=== PATIENT | female | born 1950 | race Caucasian/White ===

== ENCOUNTER 2016-11-10 06:41 | Day surgery (SDC) | payer MEDICARE, MEDICAID ==
[~2016-11-10] VITALS: Ht 170.3 cm; Wt 105.0 kg
[2016-11-10] VITALS (14 sets, daily range): BP systolic 122–153; BP diastolic 64–81; PULSE 53–67; TEMP 97.4–97.9
[~2016-11-10 06:41] MED LIST: ACIDOPHILIS PO; ASPIRIN E.C. 8181 MG PO; DITROPAN 5MG TAB5 MG PO; FISH OIL 500 M1 EAC1 PO; LEVAQUIN 5500 MG/TA1 PO; LOPRESSOR 550 MG/TAB PO; LORTAB 5/500 501 TAB PO; METOPROLOL25 MG PO; MULTIPLE VITAMI1 CAP PO; MULTIVITAMIN FO1 CAP PO; PRINIVIL10 MG PO; SYNTHROID0.025 MG PO; SYNTHROID0.137 MG PO; ULTRAM 50MG TAB50 MG PO; VITAMIN D31000 IU PO; VITAMIN D50000 IU PO; ZYLOPRIM 100MG100 MG PO; ZYRTEC 10MG10 MG PO
[2016-11-10] MEDS ORDERED: LEVOXYL0.125 MG PO (07:31)
[2016-11-10 07:39] LABS: HEMATOCRIT 40.4 % (37.0-47.0); HEMOGLOBIN 13.4 g/dl (12.5-16.0); MEAN CELL VOLUME 90 fl (80.0-100.0); MEAN CORPUSCULAR HEMOGLOBIN 30 pg (27.0-31.0); MEAN CORPUSCULAR HGB CONC 33 g/dl (33.0-37.0); PLATELET COUNT 146 K/mm3 (130-400); REDCELL DISTRIBUTION WIDTH-CV 15.5 % (11.5-14.5); WHITE BLOOD COUNT 4.4 K/mm3 (4.8-10.8)
[2016-11-10 07:49] LABS: CALCIUM 9.5 mg/dL (8.4-10.2); CREATININE, serum 1.65 mg/dL (0.52-1.25); POTASSIUM 4.3 mmol/L (3.4-5.0)
[2016-11-10 07:51] LABS: INR 0.9 (0.8-3.0); PROTHROMBIN TIME 10.2 SECONDS (9.7-12.8)
[2016-11-10] MEDS ORDERED: TRAVATAN Z 2.52.5 ML OU (08:53)
[2016-11-10] MEDS ORDERED: VITAMIN C500 MG PO (08:54)
[2016-11-10] MEDS ORDERED: NITROSTAT0.4 MG/TAB SL (08:55)
[2016-11-10] MEDS ORDERED: COREG12.5 MG PO (10:24)
[2016-11-10] MEDS ORDERED: PLAVIX 75MG TAB75 MG PO (10:24)
== END 2016-11-10 17:31 | disposition home or self-care (01) ==
LOC: COL.CAR 06:41
PROVIDERS: Internal Medicine Cardiovascular Disease
DX: I42.9 Cardiomyopathy, unspecified (principal); I20.9 Angina pectoris, unspecified; I10 Essential (primary) hypertension; E03.9 Hypothyroidism, unspecified; Z82.49 Family history of ischemic heart disease and other diseases of the circulatory system
CPT/HCPCS: A9270-GY; C1760; C1769; C1894; J2250; J3010; Q9967

== ENCOUNTER 2019-04-16 12:00 | Inpatient (IN) | payer MEDICARE, MEDICAID ==
[~2019-04-16] VITALS: Ht 170.2 cm; Wt 99.1 kg
[2019-04-16] VITALS (10 sets, daily range): BP systolic 91–144; BP diastolic 48–99; PULSE 82–102; TEMP 97.9–98.7
[~2019-04-16 12:00] MED LIST changes: -ASPIRIN E.C. 8181 MG PO; +COREG12.5 MG PO; +LEVOXYL0.15 MG PO; +NITROSTAT0.4 MG/TAB SL; +TRAVATAN Z 2.52.5 ML OU; +VITAMIN C500 MG PO
--- NOTE | 2019-04-16 12:00 | NUR ---
Admitted from [facility] with GI bleed. States vomited dark blood and had dark stools. VSS. No complaints at this time.
--- NOTE | 2019-04-16 13:00 | NUR ---
Dr. Correa saw patient. Plan is for EGD today.
[2019-04-16 14:31] LABS: HEMOGLOBIN 8.3 g/dl (12.5-16.0)
[2019-04-16] MEDS ORDERED: NORVASC2.5 MG PO (14:38)
[2019-04-16] MEDS ORDERED: ZADITOR 5 ML5 ML OP (14:39)
--- NOTE | 2019-04-16 15:10 | NUR ---
Medicated with Morphine for c/o left abdominal pain with relief.
--- NOTE | 2019-04-16 17:10 | NUR ---
To procedure per bed with OR staff.
--- NOTE | 2019-04-16 18:20 | NUR ---
Returned to room from PACU. Nauseated and vomiting. Has been medicated. VSS.
--- NOTE | 2019-04-16 19:10 | NUR ---
Medicated with Dilaudid for c/o abdominal pain.
[2019-04-16 21:02] LABS: HEMATOCRIT 23.8 % (37.0-47.0); HEMOGLOBIN 7.6 g/dl (12.5-16.0)
--- NOTE | 2019-04-16 22:07 | NUR ---
Pt doing better. Did have an episde of emesis during shift change and was c/o pain. Pt received prn pain medication and states she feels a lot better. Alert and oriented with VSS. NS running at 75 to right AC. Rates pain a 1 now. Resting in bed. Hgb dropped from 8.3 to 7.6. Denies needs at this time. Call light within reach, will continue to monitor
[2019-04-17] VITALS (13 sets, daily range): BP systolic 96–124; BP diastolic 42–64; PULSE 80–105; TEMP 97.5–99
--- NOTE | 2019-04-17 | NUR ---
Pt did cough up scant amount of mucous and dried blood, dark brown in color.
--- NOTE | 2019-04-17 00:15 | NUR ---
Pt c/o generalized abdominal pain, describes as "achy pain," RR at 18. Pulse 100 and BP 100/56. Is pale in color but was pale when I arrived on shift. Rates pain about a 4 after receiving dilaudid. Resting in bed. Denies chest pain or SOB. CAll light within reach, will continue to monitor.
[2019-04-17 01:22] LABS: HEMATOCRIT 22.2 % (37.0-47.0)
--- NOTE | 2019-04-17 02:37 | NUR ---
Pt has been having low bp readings (see intervention). Per Maggie, 1 unit of PRBC. This is currently infusing, patient tolerating well. Still having low BPs. Denies SOB or chest pain. States her abd pain in better. Pt is still pale looking. Will continue to monitor vitals. Call light within reach, will continue to monitor
--- NOTE | 2019-04-17 02:48 | NUR ---
Pt had large loose stool, dark red in color
--- NOTE | 2019-04-17 03:09 | NUR ---
Pt tolerating transfusion well, pressures are increasing. Last BP of 112/50. Denies chest pain or SOB. Call light within reach, will continue to monitor
--- NOTE | 2019-04-17 05:03 | NUR ---
Pt noted to have clots of tissue in baker.
--- NOTE | 2019-04-17 06:06 | NUR ---
Pt seems to be doing better overall. Still pale with soft pressures but states she feels ok. denies pain at this time. had to call lab to draw stat h&h. will await results. call light within reach, will continue to monitor
[2019-04-17 07:26] LABS: ALBUMIN 2.8 gm/dL (3.5-5.0); BASO % 0.2 % (0.0-2.0); BILIRUBIN,TOTAL 0.4 mg/dL (0.0-1.0); CREATININE, serum 2.09 (0.52-1.25); EOS % 0.2 % (0-4.0); GRAN # 9.4 (1.4-6.5); GRAN % 76.5 % (42.2-75.2); LYMPH # 1.9 (1.2-3.4); LYMPH % 15.2 % (20.0-51.0); MEAN CELL VOLUME 91 fl (80.0-100.0); MEAN CORPUSCULAR HGB CONC 32 g/dl (33.0-37.0); MEAN PLATELET VOLUME 10.8 fl (7.4-10.4); MONO # 0.9 (0.1-0.6); MONO % 7.3 % (1.7-9.3); PLATELET COUNT 160 K/mm3 (130-400); POTASSIUM 4.3 mmol/L (3.4-5.0); RED BLOOD COUNT 2.69 M/mm3 (4.10-5.30); REDCELL DISTRIBUTION WIDTH-CV 15.8 % (11.5-14.5); TOTAL PROTEIN 4.9 gm/dL (6.4-8.2)
[2019-04-17 07:33] LABS: HEMATOCRIT 24.6 % (37.0-47.0); HEMOGLOBIN 7.8 g/dl (12.5-16.0); MEAN CORPUSCULAR HEMOGLOBIN 29 pg (27.0-31.0)
--- NOTE | 2019-04-17 08:00 | NUR ---
PATIENT IS RESTING IN BED THIS MORNING. PATIENT IS A&OX4. VSS. TELE IN PLACE. BOWEL SOUNDS ACTIVE ALL FOUR QUADRANTS. PATIENT TOLERATING CLEAR LIQUIDS WITHOUT ANY COMPLAINTS OF N/V OR PAIN. PATIENT COLORING IS PALE. NON-PITTING BLE EDEMA. LEFT AND RIGHT AC TO INT. INDWELLING RUDOLPH CATHETER DRAINING GREEN-TINGED, FLESHY URINE TO RUDOLPH BAG. PATIENT DENIES ANY PAIN THIS MORNING. CALL LIGHT WITHIN REACH. NO OTHER NEEDS AT THIS TIME.
--- NOTE | 2019-04-17 10:15 | NUR ---
PATIENT HAD A SMALL SOFT DARK STOOL WITH SMALL AMOUNTS OF BRIGHT RED BLOOD PRESENT IN TOILET.
--- NOTE | 2019-04-17 13:28 | NUR ---
SW met with the patient to discuss a discharge plan. The patient lives in [place] with her mother and brother. The patient does not use DME and reports independence with ADLs. The patient's PCP is JOHN Rivera and patient receives medications from [facility] in [place] on [address] with no difficulties. The patient does not have advanced directives in the EMR but was interested in a DPOA-HC form. Form provided. technical services specialist will continue to follow to ensure a safe discharge.
[2019-04-17] MEDS ORDERED: TRAVATAN Z 5 ML5 ML OU (13:40)
[2019-04-17 14:56] LABS: HEMATOCRIT 22.4 % (37.0-47.0); HEMOGLOBIN 7.3 g/dl (12.5-16.0)
--- NOTE | 2019-04-17 19:18 | NUR ---
REPORT GIVEN TO TJ NASH.
--- NOTE | 2019-04-17 20:25 | NUR ---
Resting in bed. Assessment complete. Lungs clear. Heart sound normal. Bowels active x4. Pulses present throughout. Bilateral lower leg edema +1. INT right and left AC flushes without complications. Matt in place to dependent drainage without kinks or loops. Urine greenish/brown from dye received in earlier procedure. Denies pain. Denies needs at this time. Call light in reach.
--- NOTE | 2019-04-17 20:34 | NUR ---
Up to restroom for bowel movement. Patient had large dark blood stool at this time. Returned to bed. Denies other needs. call light in reach.
[2019-04-18] VITALS (12 sets, daily range): BP systolic 83–115; BP diastolic 40–66; PULSE 57–81; TEMP 98–99
--- NOTE | 2019-04-18 06:11 | NUR ---
Patient had x2 episodes of black stool throughout the night. Otherwise uneventful night. Resting in bed this AM. Denies needs. Call light in reach.
--- NOTE | 2019-04-18 07:21 | NUR ---
Report given to TJ Toledo
--- NOTE | 2019-04-18 10:30 | NUR ---
Patient alert and oriented, answers questions appropriately. See assessment. Abdomen soft, non tender, non distended. +Flatus. +Bowel movement. Bowel sounds hyperactive x4 quads. C/o general malaise. No other c/o at this time.
[2019-04-18 10:41] LABS: BASO % 0.4 % (0.0-2.0); EOS # 0.1 (0.0-0.7); EOS % 1.3 % (0-4.0); GRAN # 5.5 (1.4-6.5); GRAN % 79.6 % (42.2-75.2); LYMPH # 0.8 (1.2-3.4); LYMPH % 11.6 % (20.0-51.0); MEAN CELL VOLUME 91 fl (80.0-100.0); MEAN CORPUSCULAR HGB CONC 32 g/dl (33.0-37.0); MEAN PLATELET VOLUME 10.5 fl (7.4-10.4); MONO # 0.5 (0.1-0.6); MONO % 6.5 % (1.7-9.3); PLATELET COUNT 109 K/mm3 (130-400); RED BLOOD COUNT 2.18 M/mm3 (4.10-5.30); REDCELL DISTRIBUTION WIDTH-CV 15.9 % (11.5-14.5)
[2019-04-18 10:45] LABS: HEMATOCRIT 19.9 % (37.0-47.0); HEMOGLOBIN 6.3 g/dl (12.5-16.0); MEAN CORPUSCULAR HEMOGLOBIN 29 pg (27.0-31.0)
[2019-04-18 10:48] LABS: CALCIUM 8.5 mg/dL (8.4-10.2); CREATININE, serum 2.29 (0.52-1.25)
--- NOTE | 2019-04-18 19:06 | NUR ---
Order for 1UPRBC entered and acknowledged at approx 1045. Lab called several times throughout shift to inquire is blood ready, was told by lab that "they are working on it". Lab called at approx 1715, lab personnel states that there is no order to transfuse. Order again noted in blood bank orders. Lab request new order to transfuse be put in. New order entered, lab calls back fifteen minutes later and states there is no order in yet, however, two orders are viewed in patients orders. Mechanical Design Engineer notified, she will discuss with lab. Initial HGB when original order received was 6.3. Patient was updated throughout the day of transfusion status.
--- NOTE | 2019-04-18 19:30 | NUR ---
Report received. Assumed care for night shift supervisor. A&Ox3. Assessment complete.. Sitting up in chair. Tolerating PO. Denies pain/nausea/shortness of breath. States she feels weak but no other C/O. Matt cath with light green urine. INT to left AC flushes without difficulty. Unit of PRBC initiated per dr order. Denies needs. Will continue to monitor.
--- NOTE | 2019-04-18 22:15 | NUR ---
Blood transfusion completed. Tolearated well.
[2019-04-18 23:45] LABS: HEMATOCRIT 24.6 % (37.0-47.0)
[2019-04-19 00:38] VITALS: BP 120/47; PULSE 71; TEMP 98.6
--- NOTE | 2019-04-19 04:00 | NUR ---
Rested well later this shift. INT to left and right AC both infiltrated. Attempt made x2 to restart-change house attendant notified and attempted x6. Access gained to left foot x1 attempt by this nurse-20guage.
[2019-04-19 05:50] VITALS: BP 122/48; PULSE 70; TEMP 98.2
[2019-04-19 08:08] LABS: BASO % 0.9 % (0.0-2.0); EOS # 0.1 (0.0-0.7); EOS % 2.8 % (0-4.0); GRAN # 2.9 (1.4-6.5); LYMPH # 0.8 (1.2-3.4); LYMPH % 19.1 % (20.0-51.0); MEAN CELL VOLUME 93 fl (80.0-100.0); MEAN CORPUSCULAR HGB CONC 32 g/dl (33.0-37.0); MEAN PLATELET VOLUME 11.1 fl (7.4-10.4); MONO # 0.3 (0.1-0.6); MONO % 7.3 % (1.7-9.3); PLATELET COUNT 105 K/mm3 (130-400); RED BLOOD COUNT 2.55 M/mm3 (4.10-5.30); REDCELL DISTRIBUTION WIDTH-CV 15.7 % (11.5-14.5)
[2019-04-19 08:16] LABS: HEMATOCRIT 23.6 % (37.0-47.0); HEMOGLOBIN 7.5 g/dl (12.5-16.0); MEAN CORPUSCULAR HEMOGLOBIN 29 pg (27.0-31.0)
[2019-04-19 08:27] LABS: CALCIUM 8.8 mg/dL (8.4-10.2); CREATININE, serum 2.28 (0.52-1.25); POTASSIUM 3.7 mmol/L (3.4-5.0)
[2019-04-19 09:46] VITALS: BP 120/52; PULSE 66; TEMP 97.9
--- NOTE | 2019-04-19 10:30 | NUR ---
Patient alert and oriented, answers questions appropriately. See assessment. Abdomen soft, non tender, non distended. Bowel sounds active x4 quads. +Flatus. Reports significant decrease in bloody stools. Matt catheter patent and draining seafoam green urine. Urine is odorous with debris noted. Order for UA received. Patient has no c/o flank pain or discomfort. No other c/o at this time.
[2019-04-19 11:12] LABS: MUCOUS Present /lpf; PH 8 (5-8); URINE APPEARANCE Turbid; URINE BACTERIA Moderate /hpf; URINE BILIRUBIN Negative (NEGATIVE); URINE BLOOD 2+ (NEGATIVE); URINE COLOR Amber; URINE GLUCOSE Negative (NEGATIVE); URINE KETONE Negative (NEGATIVE); URINE LEUKOCYTE ESTERASE 3+ (NEGATIVE); URINE NITRATE Negative (NEGATIVE); URINE PROTEIN(semi-quant) 2+ (NEGATIVE); URINE UROBILINOGEN Negative (NEGATIVE)
[2019-04-19 11:27] LABS: COLLECTION METHOD CLEAN CATCH
[2019-04-19 13:18] VITALS: BP 123/56; PULSE 70; TEMP 98
[2019-04-19 17:10] LABS: HEMATOCRIT 24.5 % (37.0-47.0); HEMOGLOBIN 7.9 g/dl (12.5-16.0)
[2019-04-19 18:19] VITALS: BP 110/44; PULSE 71; TEMP 98.7
--- NOTE | 2019-04-19 20:00 | NUR ---
Report received. 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 Assessment complete. A&Ox3. VS stable. Denies pain/nausea/shortness of breath. States she is less lightheaded this evening. Has had one black stool this shift. States she is very tired and wanting to lay down for bed soon. IV to left foot flushes without difficulty. Noted to have multiple large bruised areas on bilat upper extremitites and thighs. Amtt cath with blue/green cloudy urine. PCT doing bed bath/shana care. Tolerating diet. Denies needs. Encouraged to call for questions or concerns. Verbalizes understanding. Will monitor.
[2019-04-20 00:34] VITALS: BP 128/54; PULSE 72; TEMP 97.8
[2019-04-20 03:51] VITALS: BP 136/64; PULSE 72; TEMP 97.7
[2019-04-20 08:37] LABS: BASO % 0.8 % (0.0-2.0); EOS # 0.2 (0.0-0.7); EOS % 4.6 % (0-4.0); GRAN # 3.4 (1.4-6.5); GRAN % 68.6 % (42.2-75.2); LYMPH # 0.9 (1.2-3.4); LYMPH % 18.3 % (20.0-51.0); MEAN CELL VOLUME 92 fl (80.0-100.0); MEAN CORPUSCULAR HGB CONC 32 g/dl (33.0-37.0); MEAN PLATELET VOLUME 11.3 fl (7.4-10.4); MONO # 0.3 (0.1-0.6); MONO % 6.7 % (1.7-9.3); PLATELET COUNT 151 K/mm3 (130-400); RED BLOOD COUNT 2.79 M/mm3 (4.10-5.30); REDCELL DISTRIBUTION WIDTH-CV 16.1 % (11.5-14.5)
[2019-04-20 08:39] LABS: HEMATOCRIT 25.6 % (37.0-47.0); HEMOGLOBIN 8.2 g/dl (12.5-16.0); MEAN CORPUSCULAR HEMOGLOBIN 29 pg (27.0-31.0)
[2019-04-20 08:47] VITALS: BP 130/67; PULSE 84; TEMP 97.4
[2019-04-20 08:52] LABS: CALCIUM 8.8 mg/dL (8.4-10.2); CREATININE, serum 2.08 (0.52-1.25); POTASSIUM 3.7 mmol/L (3.4-5.0)
--- NOTE | 2019-04-20 10:50 | NUR ---
Dr Dela Cruz notified of consult.
--- NOTE | 2019-04-20 11:41 | NUR ---
Patient alert and oriented, answers questions appropriately. See assessment. Abdomen soft, non tender, non distended. Bowel sounds active x4 quads. +Flatus. +Bowel movement. Matt catheter patent and draining light green urine, no odor noted. No other c/o at this time.
[2019-04-20 12:36] VITALS: BP 154/63; PULSE 84; TEMP 98.3
--- NOTE | 2019-04-20 13:59 | NUR ---
Dr Dela Cruz here to see patient.
--- NOTE | 2019-04-20 14:54 | NUR ---
SW presented the IM form to the patient. The patient understood and signed the form. A copy was provided to the patient and original was placed in the chart.
[2019-04-20] MEDS ORDERED: OMNICEF 300MG300 MG PO (14:58)
[2019-04-20] MEDS ORDERED: PROTONIX 40MG T40 MG PO (15:00)
[2019-04-20] MEDS ORDERED: ASPIRIN E.C. 8181 MG PO (15:15)
[2019-04-20] MEDS ORDERED: PLAVIX 75MG TAB75 MG PO (15:16)
[2019-04-20 15:58] VITALS: BP 133/65; PULSE 77; TEMP 98
--- NOTE | 2019-04-20 16:49 | NUR ---
The patient is to discharge home, 04/20 with no needs. Physical therapy recommends home. The patient requested DPOA-HC form be witnessed. Social Workers witnessed. A copy was placed in the patient's chart and the original and copies were given to the patient.
--- NOTE | 2019-04-20 16:59 | NUR ---
Discharge instructions reviewed with patient and family, verbalized understanding. Discharged via wheelchair to auto/home with family at 1650.
== END 2019-04-20 16:50 | disposition home or self-care (01) | DRG 378 ==
LOC: SURG 12:00
PROVIDERS: Internal Medicine Gastroenterology; Physician Assistant; ADMIT Student in an Organized Health Care Education/Training Program
PROC: 3E0G8GC Introduction of Other Therapeutic Substance into Upper GI, Via Natural or Artificial Opening Endoscopic (ICD-10-PCS; 2019-04-16)
PROC: 0W3P8ZZ Control Bleeding in Gastrointestinal Tract, Via Natural or Artificial Opening Endoscopic (ICD-10-PCS; principal; 2019-04-16 17:20)
DX: K25.0 Acute gastric ulcer with hemorrhage (principal); N17.9 Acute kidney failure, unspecified; K29.71 Gastritis, unspecified, with bleeding; N18.9 Chronic kidney disease, unspecified; E03.9 Hypothyroidism, unspecified; M10.9 Gout, unspecified; G89.29 Other chronic pain; K91.0 Vomiting following gastrointestinal surgery; D50.9 Iron deficiency anemia, unspecified; I12.9 Hypertensive chronic kidney disease with stage 1 through stage 4 chronic kidney disease, or unspecified chronic kidney disease; K57.10 Diverticulosis of small intestine without perforation or abscess without bleeding; Z88.2 Allergy status to sulfonamides; Z88.1 Allergy status to other antibiotic agents; Z90.49 Acquired absence of other specified parts of digestive tract; Z90.710 Acquired absence of both cervix and uterus; Z79.82 Long term (current) use of aspirin; Z79.02 Long term (current) use of antithrombotics/antiplatelets; Z79.01 Long term (current) use of anticoagulants
CPT/HCPCS: 99222-AI; 99232-AI; 99239; A4216; C9113; J0171; J0696; J1170; J2270; J2405; J2704; J2765; J7030; P9016

== ENCOUNTER 2020-12-20 12:29 | Inpatient (IN) | payer MEDICARE, MEDICAID ==
[~2020-12-20] VITALS: Ht 170.3 cm; Wt 87.4 kg
[~2020-12-20 12:29] MED LIST changes: +ASPIRIN E.C. 8181 MG PO; +NORVASC2.5 MG PO; +OMNICEF 300MG300 MG PO; +PLAVIX 75MG TAB75 MG PO; +PROTONIX 40MG T40 MG PO; +TRAVATAN Z 5 ML5 ML OU; +ZADITOR 5 ML5 ML OP
[2020-12-20 13:45] LABS: BASO # 0.1 (0.0-0.2); BASO % 1.4 % (0.0-2.0); EOS # 0.1 (0.0-0.7); EOS % 1.8 % (0-4.0); GRAN # 3.2 (1.4-6.5); GRAN % 74.3 % (42.2-75.2); HEMATOCRIT 37.8 % (37.0-47.0); LYMPH # 0.6 (1.2-3.4); LYMPH % 14.4 % (20.0-51.0); MEAN CELL VOLUME 91 fl (80.0-100.0); MEAN CORPUSCULAR HEMOGLOBIN 29 pg (27.0-31.0); MEAN CORPUSCULAR HGB CONC 32 g/dl (33.0-37.0); MONO # 0.3 (0.1-0.6); MONO % 7.6 % (1.7-9.3); PLATELET COUNT 173 K/mm3 (130-400); RED BLOOD COUNT 4.16 M/mm3 (4.10-5.30); REDCELL DISTRIBUTION WIDTH-CV 17.2 % (11.5-14.5)
[2020-12-20 13:52] LABS: ALBUMIN 3.8 gm/dL (3.5-5.0); BILIRUBIN,TOTAL 1.2 mg/dL (0.0-1.0); CALCIUM 9.4 mg/dL (8.4-10.2); CREATININE, serum 3.36 (0.52-1.25); POTASSIUM 4.3 mmol/L (3.4-5.0); TOTAL PROTEIN 6.5 gm/dL (6.4-8.2)
[2020-12-20 13:56] LABS: INR 1.2 (0.8-3.0); PROTHROMBIN TIME 13.3 SECONDS (9.7-12.8)
[2020-12-20 13:59] LABS: PARTIAL THROMBOPLASTIN TIME 30.5 SECONDS (26.0-37.0)
[2020-12-20 14:10] LABS: TROPONIN-I 0.041 ng/mL (0.000-0.035)
[2020-12-20] MEDS ORDERED: NORVASC 10MG10 MG PO (15:40)
[2020-12-20] MEDS ORDERED: COREG 6.256.25 MG/TA PO (15:42)
[2020-12-20] MEDS ORDERED: PROTONIX 40MG T40 MG PO (15:45)
[2020-12-20] MEDS ORDERED: ALDACTONE 25MG25 M1 PO (15:46)
[2020-12-20] MEDS ORDERED: LASIX 20MG TABL20 MG PO (15:46)
[2020-12-20] MEDS ORDERED: COLACE 100100 MG/CAP PO (15:47)
[2020-12-20 16:12] LABS: MUCOUS Present /lpf; PH 6 (5-8); SQUAMOUS EPITHELIAL 0-2 /hpf; URINE APPEARANCE Hazy; URINE BACTERIA Rare /hpf; URINE BILIRUBIN Negative (NEGATIVE); URINE BLOOD 1+ (NEGATIVE); URINE COLOR Yellow; URINE GLUCOSE Negative (NEGATIVE); URINE KETONE Negative (NEGATIVE); URINE LEUKOCYTE ESTERASE 3+ (NEGATIVE); URINE NITRATE Negative (NEGATIVE); URINE PROTEIN(semi-quant) 2+ (NEGATIVE); URINE UROBILINOGEN Negative (NEGATIVE); URINE WBC 20-50 /hpf
[2020-12-20 16:23] LABS: COLLECTION METHOD CLEAN CATCH
--- NOTE | 2020-12-20 18:06 | NUR ---
Assessment completed, alert/oriented, vital signs stable, denies pain, reports feeling better sence recieving IV Lasix in the ER, lungs diminished/ no resp.difficulty noted while at rest, heart RRR/ SB with block noted on tele, denies chest pain or discomfort at this time, 2+ edema noted to BLE, baker in place, hx of CKD and follows with , meds/allegies/pharmacy reviewed, brother Jeromy present in the room, miya salgueros had COVID vaccine X2
[2020-12-20 18:11] VITALS: BP 137/77; PULSE 70; TEMP 97.8
[2020-12-20 19:50] VITALS: BP 140/70; PULSE 68; TEMP 97.5
--- NOTE | 2020-12-20 22:40 | NUR ---
HEPARIN DRIP ORDERED. WAITING FOR HEP XA LAB TO BE COMPLETED PRIOR TO STARTING.
--- NOTE | 2020-12-20 23:52 | NUR ---
PT RESTING IN BED. EVENING MEDICATIONS GIVEN. 3+ PITTING EDEMA TO BLE. WILL CONTINUE TO MONITOR.
[2020-12-21] VITALS (7 sets, daily range): BP systolic 117–143; BP diastolic 59–76; PULSE 61–66; TEMP 97.4–98
--- NOTE | 2020-12-21 05:51 | NUR ---
PT HAD A RESTFUL NIGHT. PT HAS DRY SKIN ON HER HANDS THAT SHE PICKS AT, SHE OPENED A FEW SORE IN BETWEEN HER FINGERS. WILL CONTINUE TO MONITOR.
[2020-12-21 06:55] LABS: BASO # 0.1 (0.0-0.2); BASO % 1.3 % (0.0-2.0); EOS # 0.1 (0.0-0.7); EOS % 3.3 % (0-4.0); GRAN # 2.9 (1.4-6.5); GRAN % 73.8 % (42.2-75.2); HEMOGLOBIN 11.7 g/dl (12.5-16.0); LYMPH # 0.5 (1.2-3.4); LYMPH % 13.3 % (20.0-51.0); MEAN CELL VOLUME 91 fl (80.0-100.0); MEAN CORPUSCULAR HEMOGLOBIN 29 pg (27.0-31.0); MEAN CORPUSCULAR HGB CONC 32 g/dl (33.0-37.0); MEAN PLATELET VOLUME 10.8 fl (7.4-10.4); MONO # 0.3 (0.1-0.6); MONO % 7.8 % (1.7-9.3); PLATELET COUNT 122 K/mm3 (130-400); RED BLOOD COUNT 4.09 M/mm3 (4.10-5.30); REDCELL DISTRIBUTION WIDTH-CV 17.1 % (11.5-14.5)
--- NOTE | 2020-12-21 07:00 | NUR ---
Report with TJ Pierson. Pt sitting up in bed, awake and figuring out breakfast. Heparin infusion infusing per orders without s/s of complications. No further needs reported. Call light in reach.
[2020-12-21 07:06] LABS: ALBUMIN 3.2 gm/dL (3.5-5.0); CREATININE, serum 3.26 (0.52-1.25); POTASSIUM 3.7 mmol/L (3.4-5.0)
--- NOTE | 2020-12-21 07:30 | NUR ---
Heparin infusion stopped per protocol d/t elevated HepXa level. Next lab check entered for 929.
[2020-12-21 08:00] LABS: PHOSPHOROUS 4.9 mg/dL (2.5-4.5)
--- NOTE | 2020-12-21 09:00 | NUR ---
Assessment complete. Pt sitting up in bed, A&O x 4, denies pain at this time. IV infusion still on standby awaiting recheck of lab value. O2 provided via NC. Edema to bilat lower ext. Physical assessment otherwise unremarkable. No further needs reported. Call light in reach.
--- NOTE | 2020-12-21 12:19 | NUR ---
Plan is to return home to [place] with supports from Brother Mary . SW met with patient in room about care supports. Patient reports that she and her brother resides together. Patient reports that she has a PCP Dr. Tucker in [place]. Patient reports that she obtains medications from [facility] and does not have any DME supports. Patient does reports pain in thigh at a 5 out of 10. Patient indciaed that she has transportation home with brother but she also still drives and is fairly independent. Denies any home health services. Educated on supports through case management. NF>
--- NOTE | 2020-12-21 13:05 | NUR ---
Received returned page from retail warehouse supervisor and notified him of pt's telemetry change to sedondary type II block with heart rate briefly decreased to 41 bpm. Provider will review case.
--- NOTE | 2020-12-21 13:28 | NUR ---
stopped by but nothing needed at this time.
--- NOTE | 2020-12-21 18:50 | NUR ---
Report with TJ Pierson. Pt sitting up eating supper, denies needs at this time. Uneventful shift. Heparin infusion per orders. Call light in reach.
--- NOTE | 2020-12-21 22:04 | NUR ---
PT RESTING IN BED. EVENING MEDICATIONS GIVEN. HEPARIN DRIP INFUSING AT 1350. BLE EDEMA NOTED, SCDS ON. PT DENIES ANY NEEDS AT THIS TIME. WILL CONTINUE TO MONITOR.
--- NOTE | 2020-12-21 22:40 | NUR ---
LAB CALLED AND SAID WHEN HE WAS DRAWING THE HEP XA HE ACCIDENTALLY EDNA FROM HER RESTRICTED EXTREMITY DUE TO THE RESTRICTION BAND BEING COVERED BY HER ID BAND.
[2020-12-22 04:19] VITALS: BP 134/73; PULSE 66; TEMP 97.8
--- NOTE | 2020-12-22 05:57 | NUR ---
PT STATES SHE DID NOT GET MUCH REST THROUGHOUT THE NIGHT. DENIES ANY NEEDS AT THIS TIME. WILL CONTINUE TO MONITOR.
--- NOTE | 2020-12-22 07:00 | NUR ---
Report with TJ Pierson. Pt sitting up in bed, awake and alert, denies needs at this time. Heparin infusion per orders. Call light in reach.
[2020-12-22 07:22] LABS: BASO # 0.1 (0.0-0.2); BASO % 1.5 % (0.0-2.0); EOS # 0.2 (0.0-0.7); EOS % 4.8 % (0-4.0); GRAN # 3.1 (1.4-6.5); GRAN % 67.5 % (42.2-75.2); HEMOGLOBIN 11.7 g/dl (12.5-16.0); LYMPH # 0.8 (1.2-3.4); LYMPH % 16.7 % (20.0-51.0); MEAN CELL VOLUME 89 fl (80.0-100.0); MEAN CORPUSCULAR HEMOGLOBIN 29 pg (27.0-31.0); MEAN CORPUSCULAR HGB CONC 32 g/dl (33.0-37.0); MEAN PLATELET VOLUME 10.9 fl (7.4-10.4); MONO # 0.4 (0.1-0.6); MONO % 9.1 % (1.7-9.3); PLATELET COUNT 129 K/mm3 (130-400); RED BLOOD COUNT 4.08 M/mm3 (4.10-5.30)
[2020-12-22 07:29] LABS: HEMATOCRIT 36.4 % (37.0-47.0)
[2020-12-22 07:33] VITALS: BP 138/81; PULSE 68; TEMP 97.7
[2020-12-22 07:37] LABS: ALBUMIN 3.1 gm/dL (3.5-5.0); CALCIUM 8.9 mg/dL (8.4-10.2); CREATININE, serum 2.99 (0.52-1.25); PHOSPHOROUS 3.9 mg/dL (2.5-4.5); POTASSIUM 3.9 mmol/L (3.4-5.0)
--- NOTE | 2020-12-22 07:40 | NUR ---
Heparin infusion rate decreased to 1200 units/hr per protocol. Next HepXa level ordered for 1330. Infusion to right hand without s/s of complications. Improving edema noted to bilat lower ext. Matt catheter to DD with tal, yellow urine. Pt receiving O2 at 3 L/min via NC. No further needs reported. Call light in reach.
[2020-12-22 11:54] VITALS: BP 133/76; PULSE 68; TEMP 97.5
--- NOTE | 2020-12-22 15:00 | NUR ---
Heparin infusion rate decrased to 1050 units/hr per protocol. Next HepXa order in for 2100. Pt denies further needs at this time. Call light in reach.
[2020-12-22 16:07] VITALS: BP 138/88; PULSE 72; TEMP 97.7
--- NOTE | 2020-12-22 19:27 | NUR ---
Report with TJ Gomez. Pt sitting up in bed, awake and alert, denies needs. Heparin infusion per orders. Call light in reach.
[2020-12-22 19:47] VITALS: BP 138/76; PULSE 72; TEMP 98.5
--- NOTE | 2020-12-22 21:30 | NUR ---
Patient is lying in bed watching TV. She is alert but not oriented. She is at 3L 02 with nasal canula. Reports no pain, nausea or vomiting, chest pain or SOB. No further needs at this time. Call light within reach.
[2020-12-22 23:47] VITALS: BP 141/74; PULSE 69; TEMP 98.4
[2020-12-23] VITALS (17 sets, daily range): BP systolic 122–166; BP diastolic 55–99; PULSE 42–81; TEMP 97.4–97.9
--- NOTE | 2020-12-23 03:57 | NUR ---
Hep xa 0.46 no changes made.
--- NOTE | 2020-12-23 07:12 | NUR ---
Patient has been calms and stable all night. She took her meds and has been NPO after midnight. No adjustment to the heparin drip. Shift report will be given to day nurse.
[2020-12-23 07:28] LABS: BASO # 0.1 (0.0-0.2); EOS # 0.2 (0.0-0.7); EOS % 5.4 % (0-4.0); GRAN # 2.7 (1.4-6.5); HEMATOCRIT 41.7 % (37.0-47.0); HEMOGLOBIN 13.1 g/dl (12.5-16.0); LYMPH # 0.8 (1.2-3.4); LYMPH % 18.5 % (20.0-51.0); MEAN CELL VOLUME 92 fl (80.0-100.0); MEAN CORPUSCULAR HEMOGLOBIN 29 pg (27.0-31.0); MEAN CORPUSCULAR HGB CONC 31 g/dl (33.0-37.0); MEAN PLATELET VOLUME 11.2 fl (7.4-10.4); MONO # 0.3 (0.1-0.6); MONO % 7.6 % (1.7-9.3); PLATELET COUNT 140 K/mm3 (130-400); RED BLOOD COUNT 4.55 M/mm3 (4.10-5.30); REDCELL DISTRIBUTION WIDTH-CV 17.2 % (11.5-14.5)
[2020-12-23 07:37] LABS: ALBUMIN 3.5 gm/dL (3.5-5.0); CALCIUM 9.7 mg/dL (8.4-10.2); CREATININE, serum 3.01 (0.52-1.25); PHOSPHOROUS 3.9 mg/dL (2.5-4.5)
--- NOTE | 2020-12-23 08:45 | NUR ---
Patient is going down for Lexiscan at this time, heparin gtt will be continued during test
--- NOTE | 2020-12-23 13:03 | NUR ---
Assessment completed, alert/orineted, vital signs stable, denies pain or discomfort, stated her breathing is easier, still on 2-3 L. o2, lungs CTA, heart irregular but rate controlled, mobitz II heart block on tele, distla pulses are palapble, had LExiscan this morning and now scheduled for Bi-V ICD placement later today, she is NPO, has taken scheudled meds, baker cath patent, heparin gtt continues to run at 10.5ml/hr , denies needs and will continue to monitor
--- NOTE | 2020-12-23 16:33 | NUR ---
SEE MERGE FOR ALL MEDICATION ADMINISTRATION TIMES, INTRA AND POST SEDATION ASSESSMENTS
--- NOTE | 2020-12-23 19:00 | NUR ---
Patient arrived back to her room from laboratory chemist s/p ICD placement, she is alert/oriented, vital signs stable, incision site dressing is C/D/I, arm sling/immobilizer in place, family present in the room, ICE pack applied, will continue to monitor, I gave report to receiving nurse Pierson,RN at this time in the room
--- NOTE | 2020-12-23 23:13 | NUR ---
PT RESTING IN BED FOLLOWING HER THIAGO AND ICD PLACEMENT. PT HAS HER ARM IN A SLING AND A DRESSING TO R SHOULDER. THE DRESSING IS CD&I. AN ICE PACK PLACED OVER DRESSING AND POST OP VITALS STARTED. PT DENIES ANY SEVERE PAIN AT THIS TIME, AND SEEMS TO BE RESTING COMFORTBALY. SOME BLE EDEMA NOTED. WILL CONTINUE TO MONITOR.
[2020-12-24] VITALS (8 sets, daily range): BP systolic 129–154; BP diastolic 76–121; PULSE 71–84; TEMP 97.6–98.2
--- NOTE | 2020-12-24 06:30 | NUR ---
PT HAD A RESTFUL NIGHT. DENIES ANY SEVERE PAIN FROM PROCEDURE. PT DISLIKES THE BAG OF ICE ON HER SHOULDER BUT THIS NURSE EXPLAINED THE BENEFITS. PT DENIES ANY NEEDS AT THIS TIME. WILL CONTINUE TO MONITOR.
--- NOTE | 2020-12-24 07:21 | NUR ---
RECEIVED REPORT FROM TJ SERRANO. PT AWAKE IN BED. ALERT/ORIENT X4. REPORTS PAIN RATED 5/10 ON ICD SITE. TYLENOL WAS ADMINISTERED RECENTLY FOR PAIN; PT REFUSES OTHER INTERVENTIONS. SAYS PAIN "IS TOLERABLE." SERVICES OFFERED AND REFUSED; NO OTHER NEEDS AT THIS TIME. CALL PORRAS IN REACH.
[2020-12-24 07:37] LABS: BASO % 0.9 % (0.0-2.0); EOS # 0.2 (0.0-0.7); EOS % 3.9 % (0-4.0); GRAN # 3.4 (1.4-6.5); GRAN % 73.8 % (42.2-75.2); HEMATOCRIT 40.5 % (37.0-47.0); HEMOGLOBIN 12.8 g/dl (12.5-16.0); LYMPH # 0.5 (1.2-3.4); LYMPH % 10.9 % (20.0-51.0); MEAN CELL VOLUME 90 fl (80.0-100.0); MEAN CORPUSCULAR HEMOGLOBIN 29 pg (27.0-31.0); MEAN CORPUSCULAR HGB CONC 32 g/dl (33.0-37.0); MEAN PLATELET VOLUME 10.5 fl (7.4-10.4); MONO # 0.5 (0.1-0.6); MONO % 10.3 % (1.7-9.3); PLATELET COUNT 114 K/mm3 (130-400); RED BLOOD COUNT 4.48 M/mm3 (4.10-5.30); REDCELL DISTRIBUTION WIDTH-CV 16.8 % (11.5-14.5)
[2020-12-24 07:51] LABS: ALBUMIN 3.1 gm/dL (3.5-5.0); CALCIUM 9.2 mg/dL (8.4-10.2); CREATININE, serum 2.68 (0.52-1.25); PHOSPHOROUS 3.8 mg/dL (2.5-4.5); POTASSIUM 3.7 mmol/L (3.4-5.0)
--- NOTE | 2020-12-24 11:57 | NUR ---
PT REFUSED NEPRO CARB SUPPLEMENT
--- NOTE | 2020-12-24 12:17 | NUR ---
plate take out worker met with Dr Caceres and left message for [facility] to call regarding swing bed referral.
--- NOTE | 2020-12-24 15:26 | NUR ---
Angelica with [facility] swing bed will check with provider for acceptance to swing bed on 12/25/2020. rescue worker met with patient and contacted patient's brother, Mary [phone] to confirm the above information with Mary providing transportation. Worker advised that Mary will need to stop by the [facility] to strip picker a portable oxygen tank. Will await final acceptance from [facility].
--- NOTE | 2020-12-24 18:37 | NUR ---
PT HAD UNEVENTFUL DAY. RESTED MOST OF THE DAY IN THE CHAIR. RUDOLPH DISCONTINUED. PT TOLERATED WELL. EDUCATED PT ON IMPORTANCE OF LETTING NURSE KNOW WHEN SHE VOIDS. PT DENIES PAIN; NO OTHER NEEDS AT THIS TIME. CALL PORRAS IN REACH.
--- NOTE | 2020-12-24 21:16 | NUR ---
PT RESTING IN RECLINER. EVENING MEDICATIONS GIVEN. PT LUNGS AUSCULATED AND SOUND SLIGHTLY DIMINSHED. PT ON 3L OF OXYGEN AT THIS TIME. PT STATES SHE HAS VERY LITTLE PAIN. DRESSING TO R SHOULDER IS CD&I. ICE APPLIED TO THE AREA PER ORDERS. PT DENIES ANY NEEDS AT THIS TIME. WILL CONTINUE TO MONITOR.
[2020-12-25 00:06] VITALS: BP 140/69; PULSE 68; TEMP 97.7
[2020-12-25 04:07] VITALS: BP 130/74; PULSE 76; TEMP 97.6
--- NOTE | 2020-12-25 06:44 | NUR ---
PT HAD A RESTFUL EVENING. MORNING MEDICATIONS GIVEN. PT DENIES ANY NEEDS AT THIS TIME. PT TAKEN TO THE BATHROOM AND HER BUTTOCKS APPEARS REDDENED. WILL CONTINUE TO MONITOR.
[2020-12-25 07:14] LABS: BASO # 0.1 (0.0-0.2); BASO % 1.2 % (0.0-2.0); EOS # 0.3 (0.0-0.7); EOS % 5.5 % (0-4.0); GRAN # 3.4 (1.4-6.5); GRAN % 65.8 % (42.2-75.2); HEMATOCRIT 39.7 % (37.0-47.0); HEMOGLOBIN 12.4 g/dl (12.5-16.0); LYMPH # 0.8 (1.2-3.4); LYMPH % 14.9 % (20.0-51.0); MEAN CELL VOLUME 91 fl (80.0-100.0); MEAN CORPUSCULAR HEMOGLOBIN 29 pg (27.0-31.0); MEAN CORPUSCULAR HGB CONC 31 g/dl (33.0-37.0); MEAN PLATELET VOLUME 11.1 fl (7.4-10.4); MONO # 0.6 (0.1-0.6); PLATELET COUNT 88 K/mm3 (130-400); RED BLOOD COUNT 4.35 M/mm3 (4.10-5.30); REDCELL DISTRIBUTION WIDTH-CV 16.6 % (11.5-14.5)
[2020-12-25 07:27] VITALS: BP 171/108; PULSE 87; TEMP 97.6
[2020-12-25 07:46] LABS: ALBUMIN 3.2 gm/dL (3.5-5.0); CALCIUM 9.3 mg/dL (8.4-10.2); CREATININE, serum 3.17 (0.52-1.25); PHOSPHOROUS 4.5 mg/dL (2.5-4.5); POTASSIUM 3.7 mmol/L (3.4-5.0)
[2020-12-25] MEDS ORDERED: LIPITOR 40MG TA40 MG PO (09:37)
--- NOTE | 2020-12-25 09:55 | NUR ---
[facility] with [facility] states that Dr Boyd [phone] accepts patient today. Worker notified Radha with Dr Caceres and requested a physician to physician call with Dr Boyd. Worker contacted patient's brother, Mary, and arranged for him to obtain a portable oxygen tank at the [facility] for patient's transportation this date. Awaiting physician's discharge orders and contact with Dr Boyd.
--- NOTE | 2020-12-25 10:05 | NUR ---
PT PLEASANT, AOX4, MEDICATIONS GIVEN, ASSESSMENT PERFORMED, VITALS REVIEWED AND BP WAS ELEVATED, HYDRALAZINE GIVEN HER PRN PARAMETERS. DENIES ANY PAIN AT THIS TIME. NO OTHER NEEDS
[2020-12-25 10:25] VITALS: BP 115/102
[2020-12-25 11:57] VITALS: BP 102/50; PULSE 79; TEMP 97.6
--- NOTE | 2020-12-25 13:56 | NUR ---
REPORT CALLED TO [facility], NO OTHER NEEDS. NURSE MAHAMED AT FACILITY WANTED TO KEEP RH INT IN PLACE.
--- NOTE | 2020-12-25 14:23 | NUR ---
PT ESCORTED OUT VIA WHEELCHAIR, DISCHARGED WITH INT PER [facility] REQUEST
--- NOTE | 2020-12-25 14:53 | NUR ---
Dr Boyd accepts patient to swing bed at the [facility] this date. meat process worker faxed orders and arranged for patient's brother to transport patient at 2:00 with portable oxygen from the [facility].
== END 2020-12-25 14:25 | disposition swing bed (61) | DRG 227 ==
LOC: COL.ER 12:29 → MEDICAL 15:31
PROVIDERS: Student in an Organized Health Care Education/Training Program; ADMIT Internal Medicine Nephrology
PROC: 0JH609Z Insertion of Cardiac Resynchronization Defibrillator Pulse Generator into Chest Subcutaneous Tissue and Fascia, Open Approach (ICD-10-PCS; principal; 2020-12-23)
PROC: 02H43KZ Insertion of Defibrillator Lead into Coronary Vein, Percutaneous Approach (ICD-10-PCS; 2020-12-23)
PROC: 02HK3KZ Insertion of Defibrillator Lead into Right Ventricle, Percutaneous Approach (ICD-10-PCS; 2020-12-23)
PROC: 02H63KZ Insertion of Defibrillator Lead into Right Atrium, Percutaneous Approach (ICD-10-PCS; 2020-12-23)
DX: I44.1 Atrioventricular block, second degree (principal); N17.9 Acute kidney failure, unspecified; N39.0 Urinary tract infection, site not specified; I13.0 Hypertensive heart and chronic kidney disease with heart failure and stage 1 through stage 4 chronic kidney disease, or unspecified chronic kidney disease; I50.22 Chronic systolic (congestive) heart failure; I16.0 Hypertensive urgency; E87.70 Fluid overload, unspecified; N18.30 Chronic kidney disease, stage 3 unspecified; I25.10 Atherosclerotic heart disease of native coronary artery without angina pectoris; Z90.710 Acquired absence of both cervix and uterus; Z90.49 Acquired absence of other specified parts of digestive tract; E66.9 Obesity, unspecified; G89.29 Other chronic pain; M54.9 Dorsalgia, unspecified; E03.9 Hypothyroidism, unspecified; Z20.822 Contact with and (suspected) exposure to COVID-19; I42.8 Other cardiomyopathies; B96.20 Unspecified Escherichia coli [E. coli] as the cause of diseases classified elsewhere
CPT/HCPCS: A9500; C1769; C1777; C1882; C1887; C1894; C1898; C1900; J0690; J0696; J1644; J1940; J2185; J2250; J2785; J3010